=== PATIENT | female | born 1940 | race Asian ===

== ENCOUNTER → 2018-06-28 | Outpatient (CLI) | payer MEDICARE, OTHER ==
[2018-06-28 10:19] LABS: HEMATOCRIT 29.3 % (36-46); HEMOGLOBIN 9.9 g/dL (12.0-16.0)
[2018-06-28 10:27] LABS: CREATININE,URINE RANDOM 29.2 mg/dL (30.0-125.0)
[2018-06-28 10:32] LABS: HEMOGLOBIN A1C 6.6 % (4.5-6.2)
[2018-06-28 10:44] LABS: CALCIUM, TOTAL 8.8 mg/dL (8.8-10.5); CHOL/HDL RATIO 2.2 (3.9-5.7); CREATININE 1.2 mg/dL (0.60-1.30); POTASSIUM 5.1 mmol/L (3.5-5.1); THYROID STIMULATING HORMONE 0.83 uIU/mL (0.36-3.74)
== END | disposition home or self-care (01) ==
LOC: LABPV 07:52
PROVIDERS: ATTEND Internal Medicine Nephrology
DX: I12.9 Hypertensive chronic kidney disease with stage 1 through stage 4 chronic kidney disease, or unspecified chronic kidney disease (principal); E11.22 Type 2 diabetes mellitus with diabetic chronic kidney disease; N18.9 Chronic kidney disease, unspecified; D63.1 Anemia in chronic kidney disease; R80.8 Other proteinuria
CPT/HCPCS: 82570; 83036; 84156; 84443; 85014; 85018

== ENCOUNTER → 2021-10-28 | Outpatient (CLI) | payer MEDICARE, OTHER ==
[2021-10-28 10:44] LABS: HEMATOCRIT 26.7 % (36-46); HEMOGLOBIN 9.2 g/dL (12.0-16.0)
[2021-10-28 10:53] LABS: CREATININE,URINE RANDOM 23.7 mg/dL (30.0-125.0)
[2021-10-28 11:08] LABS: CALCIUM, TOTAL 8.7 mg/dL (8.8-10.5); CREATININE 1.55 mg/dL (0.60-1.30); POTASSIUM 4.3 mmol/L (3.5-5.1); THYROID STIMULATING HORMONE 0.95 uIU/mL (0.36-3.74)
== END | disposition home or self-care (01) ==
LOC: LABMN 10:14
PROVIDERS: ATTEND Internal Medicine Nephrology
DX: N18.30 Chronic kidney disease, stage 3 unspecified (principal); E03.9 Hypothyroidism, unspecified; D63.1 Anemia in chronic kidney disease
CPT/HCPCS: 80048; 82570; 83970; 84156; 84443; 85014; 85018

== ENCOUNTER → 2022-03-28 | Outpatient (CLI) | payer MEDICARE, OTHER ==
[2022-03-28 09:42] LABS: HEMATOCRIT 28.9 % (36-46)
[2022-03-28 09:49] LABS: CALCIUM, TOTAL 8.7 mg/dL (8.8-10.5); CHOL/HDL RATIO 1.9 (3.9-5.7); CREATININE 1.4 mg/dL (0.60-1.30); PHOSPHORUS 4.6 mg/dL (2.5-4.9); POTASSIUM 4.7 mmol/L (3.5-5.1)
[2022-03-28 09:51] LABS: HEMOGLOBIN A1C 6.2 % (3.8-5.6)
[2022-03-28 10:21] LABS: % IRON SATURATION 25.2 % (22-44)
== END | disposition home or self-care (01) ==
LOC: LABMN 09:04
PROVIDERS: ATTEND Internal Medicine Nephrology
DX: E11.22 Type 2 diabetes mellitus with diabetic chronic kidney disease (principal); N18.30 Chronic kidney disease, stage 3 unspecified; D63.1 Anemia in chronic kidney disease; E78.5 Hyperlipidemia, unspecified
CPT/HCPCS: 80048; 80061; 83036; 83540; 83550; 84100; 85014; 85018